=== PATIENT | male | born 1955 | race Caucasian/White ===

== ENCOUNTER 2019-09-02 20:50 | Emergency (ER) | payer SELFPAY ==
[2019-09-02 21:02] LABS: BASOPHILS # (AUTO) 0.1 10^3/uL (0.0-0.1); BASOPHILS % (AUTO) 0.8 %; EOSINOPHILS # (AUTO) 0.2 10^3/uL (0.0-0.7); EOSINOPHILS % (AUTO) 1.7 %; HGB - HEMOGLOBIN 13.4 g/dL (14.0-18.0); LYMPHOCYTES # (AUTO) 3.8 10^3/uL (1.5-3.5); LYMPHOCYTES % (AUTO) 29.7 %; MEAN CORPUSCULAR HEMOGLOBIN 30.5 pg (27.0-31.0); MEAN CORPUSCULAR HGB CONC 33.2 g/dL (32.0-36.0); MEAN CORPUSCULAR VOLUME 91.8 fL (80.0-94.0); MEAN PLATELET VOLUME 10.6 fL (7.4-11.4); MONOCYTES # (AUTO) 1.2 10^3/uL (0.0-1.0); MONOCYTES % (AUTO) 9.6 %; NEUTROPHILS # (AUTO) 7.4 10^3/uL (1.5-6.6); NEUTROPHILS % (AUTO) 57.7 %; PLT - PLATELET COUNT 193 10^3/uL (130-450); RED CELL DISTRIBUTION WIDTH 12.7 % (12.0-15.0); WHITE BLOOD COUNT 12.9 x10^3/uL (4.8-10.8)
--- NOTE | 2019-09-02 21:05 | ED Physician Documentation ---
PD HPI CHEST PAIN - Stated complaint Stated Complaint: CP - History obtained from History obtained from: Patient - History of Present Illness Timing - onset: Today (63-year-old gentleman with history of coronary disease, had a few stents from about 7 years ago placed at [facility]. Developed pretty typical chest pain starting with yard work around 2:30 PM. Is been waxing and waning since. Has a cold sweat that started just prior to arrival. No nausea or shortness of breath.) Review of Systems Ten Systems: 10 systems reviewed and negative Constitutional: reports: Sweats. denies: Fever, Chills Cardiac: reports: Chest pain / pressure. denies: Palpitations Respiratory: denies: Dyspnea, Cough PD PAST MEDICAL HISTORY - Past Medical History Past Medical History: Yes Cardiovascular: High cholesterol, Coronary artery disease - Allergies Allergies/Adverse Reactions: Allergies Allergy/AdvReac Type Severity Reaction Status Date / Time No Known Drug Allergies Allergy Verified 09/02/19 21:08 - Social History Does the pt have substance abuse?: No - Family History Family history: reports: Non contributory PD ED PE NORMAL - Vitals Vital signs reviewed: Yes - General General: Alert and oriented X 3, No acute distress - HEENT HEENT: PERRL, EOMI - Neck Neck: Supple, no meningeal sign, No bony TTP - Cardiac Cardiac: RRR, No murmur - Respiratory Respiratory: No respiratory distress, Clear bilaterally - Abdomen Abdomen: Soft, Non tender - Back Back: No CVA TTP, No spinal TTP - Derm Derm: Normal color, Warm and dry - Extremities Extremities: No edema, No calf tenderness / cord - Neuro Neuro: Alert and oriented X 3, Normal speech Results - Vitals Vitals: Vital Signs - 24 hr 09/02/19 09/02/19 21:08 21:11 Temperature 36.5 C 36.5 C Heart Rate 68 68 Respiratory 18 18 Rate Blood Pressure 169/102 H 171/95 H O2 Saturation 98 98 Oxygen O2 Source Room air - EKG (time done) 2055 Rate: Rate (enter#) (69) Rhythm: NSR [place]: Normal Intervals: Normal CO Ischemia: Other (ST elevation inferiorly, especially 3 and half with some reciprocal depression/T wave inversion in the anterior septal precordium.) Computer interpretation: Agree with computer - Labs Labs: Laboratory Tests 05/01/1309/02/19 09/02/19 20:58 20:58 20:58 WBC 12.9 H RBC 4.40 L Hgb 13.4 L Hct 40.4 L MCV 91.8 MCH 30.5 MCHC 33.2 RDW 12.7 Plt Count 193 MPV 10.6 Neut # (Auto) 7.4 H Lymph # (Auto) 3.8 H Love # (Auto) 1.2 H Eos # (Auto) 0.2 Baso # (Auto) 0.1 Absolute Nucleated RBC 0.00 Nucleated RBC % 0.0 Sodium 141 Potassium 3.2 L Chloride 103 Carbon Dioxide 25 Anion Gap 13.0 BUN 27 H Creatinine 1.2 Estimated GFR (MDRD) 61 L Glucose 86 Calcium 9.5 Total Bilirubin 0.7 AST 19 ALT 18 Alkaline Phosphatase 61 Troponin I High Sens 28.8 H* Total Protein 7.8 Albumin 4.5 Globulin 3.3 Albumin/Globulin Ratio 1.4 Lipase 31 PD MEDICAL DECISION MAKING - ED course ED course: 63-year-old gentleman with typical chest pain and very concerning EKG changes, looking like a brewing inferior STEMI. Accepted by Dr. Erickson Holloway to [facility] ED at 9:05 PM and cobras were completed. In the department here he received aspirin, 324 mg, heparin 5000 unit bolus and 1000 unit drip Nitropaste 1 inch and metoprolol 50 mg p.o. Departure - Departure Disposition: 02 Transfer Acute Care Hosp Clinical Impression: ST elevation myocardial infarction (STEMI) of inferior wall Condition: Critical Discharge Date/Time: 09/02/19 21:26
[2019-09-02] MEDS ORDERED: HEPARIN 25000UNITS/500ML (D5W) 25,000 UNIT/500 ML BAG IV ONE (21:06)
[2019-09-02] MEDS ORDERED: METOPROLOL TARTRATE 50 MG TABLET ONE (21:06)
[2019-09-02] MEDS ORDERED: HEPARIN 5,000 UNIT/ML VIAL ONE (21:06)
[2019-09-02] MEDS ORDERED: ASPIRIN CHEW 81 MG TABLET ONE (21:06)
[2019-09-02] MEDS ORDERED: ASPIRIN CHEW 81 MG TABLET PO STA (21:06)
[2019-09-02] MEDS ORDERED: METOPROLOL TARTRATE 50 MG TABLET PO STA (21:07)
[2019-09-02] MEDS ORDERED: HEPARIN 25000UNITS/500ML (D5W) 25,000 UNIT/500 ML BAG IV STA (21:07)
[2019-09-02] MEDS ORDERED: HEPARIN 5,000 UNIT/ML VIAL IVP STA (21:07)
[2019-09-02] MEDS ORDERED: NITROGLYCERIN 2% PASTE TOP STA (21:07)
[2019-09-02 21:14] VITALS: BP 171/95
[2019-09-02 21:16] LABS: ALBUMIN 4.5 g/dL (3.2-5.5); ALBUMIN/GLOBULIN RATIO 1.4 (1.0-2.2); BILIRUBIN,TOTAL 0.7 mg/dL (0.2-1.0); CALCIUM 9.5 mg/dL (8.5-10.3); CREATININE 1.2 mg/dL (0.6-1.2); TOTAL PROTEIN 7.8 g/dL (6.7-8.2)
--- NOTE | 2019-09-02 21:45 | XRAY Report ---
Reason: chest pain Procedure Date: 09/02/2019 Accession Number: [id number] / [id number] Procedure: XR - Chest 1 View X-Ray CPT Code: 52285 Final Report FULL RESULT: EXAM: CHEST RADIOGRAPHY EXAM DATE: 09/02/2019 09:12 PM. CLINICAL HISTORY: Chest pain. COMPARISON: None. TECHNIQUE: 1 view. FINDINGS: Lungs/Pleura: No focal opacities evident. No pleural effusion. No pneumothorax. Mediastinum: Within exam limitations, the cardiomediastinal contour is normal. IMPRESSION: No acute cardiopulmonary disease seen. RAD[facility]
== END 2019-09-02 21:26 | disposition short-term general hospital (02) ==
LOC: ED 20:50
DX: I21.3 ST elevation (STEMI) myocardial infarction of unspecified site (principal); I25.10 Atherosclerotic heart disease of native coronary artery without angina pectoris; E78.00 Pure hypercholesterolemia, unspecified; Z95.5 Presence of coronary angioplasty implant and graft
CPT/HCPCS: 36415; 71045; 80053; 83690; 84484; 85025; 93005; 96374; 99285; A9270

== ENCOUNTER 2019-09-02 21:26 | Outpatient (CLI) | payer SELFPAY | END 2019-09-02 21:27 | disposition short-term general hospital (02) | LOC: EMS 21:26 | PROVIDERS: ATTEND Surgery | DX: R07.9 Chest pain, unspecified (principal) | CPT/HCPCS: A0425; A0426 ==

== ENCOUNTER 2020-01-26 07:55 | Outpatient (CLI) | payer BC ==
[2020-01-26 08:41] LABS: CHOL/HDL RATIO 2.6 (<5.0); CHOLESTEROL 97 mg/dL; HDL CHOLESTEROL 38 mg/dL; LDL CHOLESTEROL,CALCULATED 38 mg/dL; VLDL CHOLESTEROL 21 mg/dL
== END 2020-01-26 07:56 | disposition home or self-care (01) ==
LOC: LAB 07:55
PROVIDERS: ATTEND Family Medicine
DX: I25.10 Atherosclerotic heart disease of native coronary artery without angina pectoris (principal)
CPT/HCPCS: 36415; 80061; 83721